=== PATIENT | female | born 1995 | race Caucasian/White ===

== ENCOUNTER 2021-02-11 19:14 | Emergency (ER) | payer OTHER, SELFPAY ==
--- NOTE | ~2021-02-11 | CT_ITS ---
EXAMINATION: CT ABDOMEN AND PELVIS WITHOUT CONTRAST CLINICAL INFORMATION: Bilateral flank pain. History of pyelonephritis. COMPARISON: No similar priors. TECHNIQUE: Multidetector volumetric imaging was performed from the superior aspect of the liver through the pubic symphysis. Sagittal and coronal reformatted images were obtained on the technologist's workstation. This CT examination was performed using dose optimization techniques as appropriate, variously including the following: *Automated exposure control *Adjustment of mA and/or kV according to patient size (this includes techniques or standardized protocols for targeted exams where dose is matched to indication/reason for exam; i.e. extremities or head) *Use of iterative reconstruction technique DLP: 496 mGy-cm FINDINGS: LUNG BASES: The visualized lung bases are unremarkable. LIVER, GALLBLADDER, AND BILIARY TREE: There is decreased hepatic parenchymal attenuation most consistent with hepatic steatosis. The liver is otherwise normal in size and shape without focal abnormalities. The gallbladder is within normal limits. There is no biliary ductal dilatation. PANCREAS: No focal abnormalities. The main pancreatic duct is nondilated. No inflammatory changes. SPLEEN: Unremarkable. ADRENAL GLANDS: Unremarkable. KIDNEYS AND URETERS: The kidneys are normal in size, shape, and attenuation. No hydronephrosis, hydroureter, or calculi seen. No perinephric stranding. BLADDER: Underdistended limiting assessment of wall thickening. No focal abnormalities nor significant surrounding fat stranding. GASTROINTESTINAL TRACT: The stomach and the small bowel are nondilated. Normal appendix. The distal colon is under distended limiting assessment wall thickening. However, there are no pericolic inflammatory changes to suggest diverticulitis or colitis. No bowel obstruction. ABDOMINAL WALL: Injection sites in both gluteal regions. No abdominal hernia. LYMPH NODES: Accounting for limitations in the absence of intravenous contrast, there is no definite lymphadenopathy by size criteria. VASCULAR: Unremarkable. PELVIC VISCERA: The ovaries are medially displaced and located posterior to the uterus (image 67 of series 2) which could indicate the presence of some degree of adhesions or scarring. Normal CT appearance of the uterus. Very minimal amount of free fluid, likely physiologic. OSSEOUS STRUCTURES: No acute or aggressive osseous findings. CT/CT abdomen pelvis wo con IMPRESSION: No evidence of hydronephrosis or nephrolithiasis. Hepatic steatosis. Medial displacement of both ovaries which are closely apposed to each other and posterior to the uterus. This could be seen in the setting of endometriosis from scarring/adhesions. Correlate clinically and if indicated consider further evaluation with an MR of the pelvis.
[2021-02-11 21:03] VITALS: BP 146/96; PULSE 117; RESP 117; TEMP 37.3; O2SAT 98; BMI 30.1
[2021-02-11 21:31] LABS: COVID-19 Test Negative (Negative)
[2021-02-11 21:55] LABS: Appearance Urine HAZY; Color Urine YELLOW; Glucose Urine UA NEG (NEG); Nitrite Urine NEG (NEG); Specific Gravity - Urine 1.025 (1.005-1.025); Urine Blood 2+ (NEG); Urine Ketones NEG (NEG); Urine Protein NEG (NEG-TRACE)
[2021-02-11 21:56] LABS: Leukocyte Esterase Urine 3+ (NEG); UACC Culture Trigger YES
[2021-02-11 21:57] LABS: Squamous Epithelial Cell Urine 3+ /LPF
[2021-02-11 21:58] LABS: Bacteria Urine 1+ /LPF
[2021-02-11 21:59] LABS: WBC Urine 50-75 /HPF (0-4)
--- NOTE | 2021-02-11 22:45 | ED_ITS ---
HPI - Neck Pain/Injury General Chief Complaint: Neck Pain/Injury Stated Complaint: Abscess Time Seen by Provider: 02/11/21 22:44 Source: patient Mode of arrival: ambulatory Limitations: no limitations History of Present Illness HPI Narrative: 25-year-old female presents with multiple complaints. States to have several days of fever, chills, rash, dysuria, hematuria, neck pain, and fatigue. MD complaint: neck pain Onset (ago): day(s) Radiation: left lateral Severity: moderate Quality: aching Duration: constant Relieving factors: none Exacerbating factors: movement of extremity and movement of neck Associated symptoms: headache and fever Treatments prior to arrival: none Related Data Previous Rx's Medication Instructions Recorded cephalexin 500 mg capsule 500 mg PO TID 7 Days #21 cap 02/12/21 doxycycline monohydrate 100 mg 100 mg PO BID 10 Days #20 cap 02/12/21 capsule fluconazole 150 mg tablet 150 mg PO Q3D #2 tab 02/12/21 (Diflucan) Allergies Allergy/AdvReac Type Severity Reaction Status Date / Time Penicillins [PCN] Allergy Hives Verified 02/11/21 21:02 Review of Systems Review of Systems: Constitutional: Positive Fever, positive Chills ENT/Mouth: No Ear Pain, No Hoarseness, positive sore throat Eyes: No Eye Pain, No Swelling, No Redness, No Foreign Body Cardiovascular: No Chest Pain, No SOB Respiratory: No Cough, No Dyspnea Gastrointestinal: Positive Nausea, No Vomiting, No Diarrhea, positive bilateral flank abdominal Pain Genitourinary: Positive Dysuria, positive Hematuria Musculoskeletal: positive joint pain, No Myalgias, No Joint Swelling Skin: No Skin lacerations, positive rash Neuro: No Weakness, No Numbness, No Paresthesias, No Loss of Consciousness, No Dizziness, positive Headache Psych: No Anxiety/Panic, No Depression Heme/Lymph: no easy bruising, no Lymphadenopathy Endocrine: No Polyuria, No Polydipsia Yes all other systems are reviewed and are negative [facility] Past Medical History Attestation statement: The following information was validated with the patient. Source: old records reviewed Medical History No known health problems Social History Social History Advance Directives: No Advance Directives Information Provided: Yes Physical Exam Vital Signs: Vital Signs: Last Vital Signs Temp 98.2 F 02/12/21 00:59 Pulse 98 02/12/21 00:59 Resp 18 02/12/21 00:59 BP 120/78 02/12/21 00:59 Pulse Ox 98 02/12/21 00:59 Body Mass Index 30.1 Appearance: Alert. Oriented X3. Mild distress. Head: Normal external exam. Normocephalic. Atraumatic. No [place] signs noted. No raccoon eyes noted Eyes: PERRLA. EOMI. Conjunctiva and sclera normal. Eyelids normal. ENT: TM's Normal. Pharynx normal. Uvula midline. Moist mucous membranes. No trismus noted. No drooling noted. No muffled voice noted. Neck: Normal inspection. Neck supple. Thyroid Normal. No meningeal signs. No neck mass noted. No vertebral tenderness or step-offs noted. No cervical lymphadenopathy. CVS: Normal heart rate and rhythm. Heart sound normal. No murmurs noted. Pulses equal to all extremities. Respiratory: No respiratory distress. Painless inspiration. Breath sounds normal. No wheezes/rales/rhonchi noted. Chest nontender. No accessory muscle usage noted or decreased air movement noted. Abdomen: Positive bilateral CVA tenderness. Soft and nontender. Bowel sounds normal in all 4 quadrants. No distention noted. No organomegaly noted. No visible injury noted. Back: Full range of motion noted. Skin: Skin warm and dry. Normal skin color. Normal skin turgor. Scattered erythematous pinpoint rash, on arms, legs and feet. Extremities: No lower extremity edema. Extremities exhibit normal range of motion. Extremities nontender. Neuro: cranial nerves 2-12 intact, no focal neural deficits, strength 5/5 to all extremities, No motor deficit. No sensory deficit. Course Course Course Narrative: 25-year-old female presents with multiple complaints. Scattered rash does not look like varicella or contact dermatitis. Not vesicular or pustule like, several scattered pinpoint raised areas to the arms, legs and feet. Most likely consistent with staph. Patient also complains of urinary symptoms, has bilateral CVA tenderness, with history of pyelo. Patient was admitted approximately 2 months ago for pyelo at [facility]. Will order CT scan of abdomen pelvis without contrast to rule out acute abdomen. Urinalysis positive for heme and leukocyte esterase. Will start ceftriaxone and give 1 L of fluid. Patient is tachycardic upon arrival at 117.. Repeat vital signs indicate heart rate of 103. Patient is afebrile, does not meet sepsis SIRS criteria at this time. Labs are within normal limits , ESR and sed rate are slightly elevated consistent with inflammatory response of skin infection as well as UTI. Urinalysis is also positive for yeast. Will prescribe Diflucan and instruct patient to take it on day 5 of Keflex if she is symptomatic. CT scan does show some abnormalities of the ovaries and uterus consistent with endometriosis, pelvic congestion syndrome but not acute. Will have patient follow-up with application development specialist as an outpatient. Patient does have a fatty liver, will have patient follow-up with primary care physician for this finding. Discharge instructions discussed in detail with patient, patient verbalized understanding of and agrees to plan of care discharge home. MDM - Neck Pain/Injury MDM Narrative Medical decision making narrative: Influenza, viral infection, staph infection, UTI Medical Records Attestation: I reviewed the patient's medical records. Lab Data Attestation: I reviewed the patient's lab results. Result diagrams: 02/11/21 23:30 02/11/21 23:30 Labs: Lab Results 02/11/21 02/11/21 02/11/21 Range/Units 21:09 21:41 23:30 WBC 6.4 (4.8-10.8) X10*3/uL RBC 4.59 (4.20-5.50) X10*6/uL Hgb 14.1 (12.0-16.0) g/dl Hct 41.9 (37-47) % MCV 91.3 (80-98) fL MCH 30.7 (27.0-33.0) pg MCHC 33.7 (31.0-35.0) g/dl RDW 12.4 (11.0-16.0) % Plt Count 345 (160-400) X10*3/uL MPV 9.8 (9.4-12.3) fL Immature Gran % (Auto) 0.2 (0.0-0.4) % Neut % (Auto) 43.4 L (45-73) % Lymph % (Auto) 38.4 (20-40) % [place] % (Auto) 15.7 H (2-11) % Eos % (Auto) 1.7 (0-4) % Baso % (Auto) 0.6 (0-2) % Lymph # (Auto) 2.5 (1.2-4.9) X10*3/uL [place] # (Auto) 1.0 (0.1-1.2) X10*3/uL Eos # (Auto) 0.1 (0.0-0.4) X10*3/uL Baso # (Auto) 0.0 (0.0-0.2) X10*3/uL Abs Immat Gran (auto) 0.01 (0.00-0.03) X10*3/uL Absolute Neuts (auto) 2.8 (2.0-8.3) X10*3/uL Absolute Nucleated RBC 0.000 (0.0-0.012) X10*3/uL Nucleated RBC % (auto) 0.0 (0.0-0.2) /100WBC ESR (0-20) MM/HR Sodium (135-145) mmol/L Potassium (3.3-5.1) mmol/L Chloride (96-108) mmol/L Carbon Dioxide (22-29) mmol/L Anion Gap (12-20) BUN (9-16) mg/dL Creatinine (0.5-1.4) mg/dL Estim Creat Clear Calc Estimated GFR Random Glucose (60-115) mg/dL Calcium (8.4-10.2) mg/dL C-Reactive Protein (< or = 0.50) mg/dL Urine Color YELLOW Urine Appearance HAZY Urine pH 6.0 (5.0-8.0) Ur Specific [place] 1.025 (1.005-1.025) Urine Protein NEG (NEG-TRACE) MG/DL Urine Glucose (UA) NEG (NEG) MG/DL Urine Ketones NEG (NEG) MG/DL Urine Blood 2+ H (NEG) Urine Nitrite NEG (NEG) Ur Leukocyte Esterase 3+ H (NEG) Urine RBC 5-9 H (0) /HPF Urine WBC 50-75 H (0-4) /HPF Ur Squamous Epith Cells 3+ /LPF Urine Bacteria 1+ /LPF Urine Yeast 1+ /HPF Urine Test (NEGATIVE) COVID-19 (RAY) Negative (Negative) COVID-19 Clin Com See Note 02/11/21 02/11/21 02/11/21 Range/Units 23:30 23:30 23:30 WBC (4.8-10.8) X10*3/uL RBC (4.20-5.50) X10*6/uL Hgb (12.0-16.0) g/dl Hct (37-47) % MCV (80-98) fL MCH (27.0-33.0) pg MCHC (31.0-35.0) g/dl RDW (11.0-16.0) % Plt Count (160-400) X10*3/uL MPV (9.4-12.3) fL Immature Gran % (Auto) (0.0-0.4) % Neut % (Auto) (45-73) % Lymph % (Auto) (20-40) % [place] % (Auto) (2-11) % Eos % (Auto) (0-4) % Baso % (Auto) (0-2) % Lymph # (Auto) (1.2-4.9) X10*3/uL [place] # (Auto) (0.1-1.2) X10*3/uL Eos # (Auto) (0.0-0.4) X10*3/uL Baso # (Auto) (0.0-0.2) X10*3/uL Abs Immat Gran (auto) (0.00-0.03) X10*3/uL Absolute Neuts (auto) (2.0-8.3) X10*3/uL Absolute Nucleated RBC (0.0-0.012) X10*3/uL Nucleated RBC % (auto) (0.0-0.2) /100WBC ESR 44 H (0-20) MM/HR Sodium 138 (135-145) mmol/L Potassium 3.7 (3.3-5.1) mmol/L Chloride 104 (96-108) mmol/L Carbon Dioxide 26 (22-29) mmol/L Anion Gap 12 (12-20) BUN 8 L (9-16) mg/dL Creatinine 0.72 (0.5-1.4) mg/dL Estim Creat Clear Calc 95.5 Estimated GFR > 60 Random Glucose 88 (60-115) mg/dL Calcium 9.0 (8.4-10.2) mg/dL C-Reactive Protein 8.46 H (< or = 0.50) mg/dL Urine Color Urine Appearance Urine pH (5.0-8.0) Ur Specific [place] (1.005-1.025) Urine Protein (NEG-TRACE) MG/DL Urine Glucose (UA) (NEG) MG/DL Urine Ketones (NEG) MG/DL Urine Blood (NEG) Urine Nitrite (NEG) Ur Leukocyte Esterase (NEG) Urine RBC (0) /HPF Urine WBC (0-4) /HPF Ur Squamous Epith Cells /LPF Urine Bacteria /LPF Urine Yeast /HPF Urine Test (NEGATIVE) COVID-19 (RAY) (Negative) COVID-19 Clin Com 02/11/21 Range/Units 23:30 WBC (4.8-10.8) X10*3/uL RBC (4.20-5.50) X10*6/uL Hgb (12.0-16.0) g/dl Hct (37-47) % MCV (80-98) fL MCH (27.0-33.0) pg MCHC (31.0-35.0) g/dl RDW (11.0-16.0) % Plt Count (160-400) X10*3/uL MPV (9.4-12.3) fL Immature Gran % (Auto) (0.0-0.4) % Neut % (Auto) (45-73) % Lymph % (Auto) (20-40) % [place] % (Auto) (2-11) % Eos % (Auto) (0-4) % Baso % (Auto) (0-2) % Lymph # (Auto) (1.2-4.9) X10*3/uL [place] # (Auto) (0.1-1.2) X10*3/uL Eos # (Auto) (0.0-0.4) X10*3/uL Baso # (Auto) (0.0-0.2) X10*3/uL Abs Immat Gran (auto) (0.00-0.03) X10*3/uL Absolute Neuts (auto) (2.0-8.3) X10*3/uL Absolute Nucleated RBC (0.0-0.012) X10*3/uL Nucleated RBC % (auto) (0.0-0.2) /100WBC ESR (0-20) MM/HR Sodium (135-145) mmol/L Potassium (3.3-5.1) mmol/L Chloride (96-108) mmol/L Carbon Dioxide (22-29) mmol/L Anion Gap (12-20) BUN (9-16) mg/dL Creatinine (0.5-1.4) mg/dL Estim Creat Clear Calc Estimated GFR Random Glucose (60-115) mg/dL Calcium (8.4-10.2) mg/dL C-Reactive Protein (< or = 0.50) mg/dL Urine Color Urine Appearance Urine pH (5.0-8.0) Ur Specific [place] (1.005-1.025) Urine Protein (NEG-TRACE) MG/DL Urine Glucose (UA) (NEG) MG/DL Urine Ketones (NEG) MG/DL Urine Blood (NEG) Urine Nitrite (NEG) Ur Leukocyte Esterase (NEG) Urine RBC (0) /HPF Urine WBC (0-4) /HPF Ur Squamous Epith Cells /LPF Urine Bacteria /LPF Urine Yeast /HPF Urine Test NEGATIVE (NEGATIVE) COVID-19 (RAY) (Negative) COVID-19 Clin Com Imaging Data CT abdomen pelvis: Attestation: I personally reviewed and interpreted this imaging study as follows: Radiologist's impression: EXAMINATION: CT ABDOMEN AND PELVIS WITHOUT CONTRAST? CLINICAL INFORMATION: Bilateral flank pain. History of pyelonephritis.? COMPARISON: No similar priors.? TECHNIQUE: Multidetector volumetric imaging was performed from the superior aspect of the liver through the pubic symphysis. Sagittal and coronal reformatted images were obtained on the technologist's workstation.? This CT examination was performed using dose optimization techniques as appropriate, variously including the following: *Automated exposure control *Adjustment of mA and/or kV according to patient size (this includes techniques or standardized protocols for targeted exams where dose is matched to indication/reason for exam; i.e. extremities or head) *Use of iterative reconstruction technique DLP: 496 mGy-cm FINDINGS: LUNG BASES: The visualized lung bases are unremarkable.? LIVER, GALLBLADDER, AND BILIARY TREE: There is decreased hepatic parenchymal attenuation most consistent with hepatic steatosis. The liver is otherwise normal in size and shape without focal abnormalities. The gallbladder is within normal limits. There is no biliary ductal dilatation. PANCREAS: No focal abnormalities. The main pancreatic duct is nondilated. No inflammatory changes.? SPLEEN: Unremarkable.? ADRENAL GLANDS: Unremarkable.? KIDNEYS AND URETERS: The kidneys are normal in size, shape, and attenuation. No hydronephrosis, hydroureter, or calculi seen. No perinephric stranding. ? BLADDER: Underdistended limiting assessment of wall thickening. No focal abnormalities nor significant surrounding fat stranding.? GASTROINTESTINAL TRACT: The stomach and the small bowel are nondilated. Normal appendix. The distal colon is under distended limiting assessment wall thickening. However, there are no pericolic inflammatory changes to suggest diverticulitis or colitis. No bowel obstruction.? ABDOMINAL WALL: Injection sites in both gluteal regions. No abdominal hernia.? LYMPH NODES: Accounting for limitations in the absence of intravenous contrast, there is no definite lymphadenopathy by size criteria. VASCULAR: Unremarkable. PELVIC VISCERA: The ovaries are medially displaced and located posterior to the uterus (image 67 of series 2) which could indicate the presence of some degree of adhesions or scarring. Normal CT appearance of the uterus. Very minimal amount of free fluid, likely physiologic.? OSSEOUS STRUCTURES: No acute or aggressive osseous findings.? CT/CT abdomen pelvis wo con IMPRESSION: No evidence of hydronephrosis or nephrolithiasis. ? Hepatic steatosis. ? Medial displacement of both ovaries which are closely apposed to each other and posterior to the uterus. This could be seen in the setting of endometriosis from scarring/adhesions. Correlate clinically and if indicated consider further evaluation with an MR of the pelvis. ? Discharge Plan Discharge Clinical Impression: Rash UTI (urinary tract infection) Qualifiers: Urinary tract infection type: acute cystitis Hematuria presence: with hematuria Qualified Code(s): N30.01 - Acute cystitis with hematuria Patient Disposition: Home, Self-Care Instructions: Urinary Tract Infection in Women (ED), Acute Rash (ED) Additional Instructions: You were evaluated for dysuria and rash. We are treating you for UTI as well as a suspected skin staph infection. Please take Keflex and doxycycline as directed. I prescribed Diflucan, this medication will help with yeast infection with antibiotic use. Take this on day 5 of Keflex. Then repeat in [address] scan indicates displacement of ovaries. Please follow-up with application development specialist. I referred you to Dr. Vick. CT scan also indicates fatty liver disease. Please follow-up with primary care physician for follow-up. Thank you for choosing this emergency department for evaluation. Please follow-up with primary care physician as needed. Return to the emergency department for any new, concerning, or worsening symptoms. Prescriptions: New cephalexin 500 mg capsule 500 mg PO TID 7 Days Qty: 21 RF: 0 doxycycline monohydrate 100 mg capsule 100 mg PO BID 10 Days Qty: 20 RF: 0 fluconazole [Diflucan] 150 mg tablet 150 mg PO Q3D Qty: 2 RF: 0 Referrals: Abran Vick MD [Physician] - 2 days (Medial displacement of both ovaries which are closely apposed to each other and posterior to the uterus. This could be seen in the setting of endometriosis from scarring/adhesions. Correlate clinically and if indicated consider further evaluation with an MR of the pelvis) Stand Alone Forms: Work/School Release Interventions: ED Discharge Assessment Last Done: 02/12/21 01:14 Discharge Date/Time: 02/12/21 01:17
[2021-02-11 22:50] VITALS: BP 123/77; PULSE 109; RESP 20; TEMP 36.7; O2SAT 99
[2021-02-11 23:37] LABS: Basophils Percent Auto 0.6 % (0-2); Eosinophils Absolute Auto 0.1 X10*3/uL (0.0-0.4); Eosinophils Percent Auto 1.7 % (0-4); Hematocrit 41.9 % (37-47); Hemoglobin 14.1 g/dl (12.0-16.0); Imm Gran Abs Auto 0.01 X10*3/uL (0.00-0.03); Imm Gran Pct Auto 0.2 % (0.0-0.4); Lymphocytes Absolute Auto 2.5 X10*3/uL (1.2-4.9); Lymphocytes Percent Auto 38.4 % (20-40); MANUAL DIFF FLAG NO; Mean Corpuscular HGB Conc 33.7 g/dl (31.0-35.0); Mean Corpuscular Hemoglobin 30.7 pg (27.0-33.0); Mean Corpuscular Volume 91.3 fL (80-98); Mean Platelet Volume 9.8 fL (9.4-12.3); Monocytes Percent Auto 15.7 % (2-11); Neutrophils Absolute Auto 2.8 X10*3/uL (2.0-8.3); Neutrophils Percent Auto 43.4 % (45-73); Platelet Count 345 X10*3/uL (160-400); Red Blood Count 4.59 X10*6/uL (4.20-5.50); Red Cell Distribution Width 12.4 % (11.0-16.0); White Blood Count 6.4 X10*3/uL (4.8-10.8)
[2021-02-11 23:41] LABS: UPreg QC Valid YES; Urine Pregnancy NEGATIVE (NEGATIVE)
[2021-02-11 23:49] LABS: Anion Gap 12 (12-20); Blood Urea Nitrogen 8 mg/dL (9-16); C Reactive Protein 8.46 mg/dL (< or = 0.50); Carbon Dioxide 26 mmol/L (22-29); Chloride 104 mmol/L (96-108); Creatinine Clr Calc Pharmacy 95.5; Estimated Glomerular Filt Rate > 60; Glucose Random 88 mg/dL (60-115); Potassium 3.7 mmol/L (3.3-5.1); Sodium 138 mmol/L (135-145)
[2021-02-11] MEDS: cefTRIAXone sodium 1 GM in 0.9 % Sodium Chloride 50 ML IV (23:51)
[2021-02-11] MEDS: 0.9 % Sodium Chloride 1,000 ML 999 ML IVCONT (23:52)
[2021-02-12 00:18] LABS: Erythrocyte Sedimentation Rate 44 MM/HR (0-20)
[2021-02-12 00:59] VITALS: BP 120/78; PULSE 98; RESP 18; TEMP 36.8; O2SAT 98
== END 2021-02-12 01:17 | disposition home or self-care (01) ==
PROVIDERS: Nurse Practitioner Family; Emergency Provider Student in an Organized Health Care Education/Training Program
DX: R21 Rash and other nonspecific skin eruption (principal); N30.01 Acute cystitis with hematuria; R10.9 Unspecified abdominal pain; Z20.822 Contact with and (suspected) exposure to COVID-19; Z79.899 Other long term (current) drug therapy
CPT/HCPCS: 36415; 74176; 80048; 81001; 81025; 85025; 85652; 86140; 87086; 87147; 87635; 96361; 96365; 99283; 99284; J0696